=== PATIENT | female | born 1950 | race Caucasian/White ===

== ENCOUNTER → 2022-01-14 | Outpatient (CLI) | payer MEDICARE ==
[2022-01-15 07:13] LABS: CLARITY,URINE CLEAR; COLOR,URINE YELLOW
[2022-01-15 07:14] LABS: BACTERIA,URINE FEW /HPF; BILIRUBIN,URINE NEGATIVE (NEGATIVE); GLUCOSE, URINE (UA) NEGATIVE (NEGATIVE); KETONES,URINE NEGATIVE (NEGATIVE); LEUKOCYTE ESTERASE ,URINE NEGATIVE (NEGATIVE); NITRITE,URINE NEGATIVE (NEGATIVE); PROTEIN,URINE NEGATIVE (NEGATIVE); RBC,URINE 0-2 /HPF; WBC,URINE RARE /HPF
== END ==
LOC: CVS 22:00 → LABNPT 01-15 06:55
PROVIDERS: ATTEND Internal Medicine
DX: R52 Pain, unspecified (principal); R82.998 Other abnormal findings in urine; Z87.440 Personal history of urinary (tract) infections
CPT/HCPCS: 81000; 87088

== ENCOUNTER 2022-01-25 05:28 | Outpatient (CLI) | payer MEDICARE, MEDICAID ==
[~2022-01-25] VITALS: Ht 162.6 cm; Wt 76.8 kg
[2022-01-25] MEDS ORDERED: MULT-1136 PO (15:29)
[2022-01-25] MEDS ORDERED: CYAN1TAB26 PO (15:29)
[2022-01-25] MEDS ORDERED: CLIN300C3 PO (15:29)
[2022-01-25] MEDS ORDERED: ROSU5TAB13 PO (15:29)
[2022-01-25] MEDS ORDERED: ACET-2267 PO (15:29)
[2022-01-25] MEDS ORDERED: QUET100T PO (15:29)
== END 2022-01-25 15:38 ==
LOC: PREOP 05:28
PROVIDERS: ATTEND Surgery
DX: Z01.818 Encounter for other preprocedural examination (principal)

== ENCOUNTER 2022-02-01 08:59 | Day surgery (SDC) | payer MEDICARE, MEDICAID ==
[~2022-02-01] VITALS: Ht 162.6 cm; Wt 75.0 kg
[2022-02-01] VITALS (8 sets, daily range): BP systolic 120–136; BP diastolic 64–95
[~2022-02-01 08:59] MED LIST: ACET-2267 PO; CLIN300C3 PO; CYAN1TAB26 PO; MULT-1136 PO; QUET100T PO; ROSU5TAB13 PO
[2022-02-01] MEDS ORDERED: ceFAZolin INJECTION 1,000 MG ONE (09:56)
[2022-02-01] MEDS ORDERED: ceFAZolin INJECTION 1,000 MG VIAL IV ONE (10:30)
[2022-02-01] MEDS ORDERED: LACTATED RINGERS 1,000 ML IV PRN (10:30)
--- NOTE | 2022-02-01 11:11 | Progress Note-Pre Operative ---
Pre-Operative Progress Note H&P Reviewed The H&P was reviewed, patient examined and no changes noted. Date Seen by Provider: Feb 01, 2022 Time Seen by Provider: 11:10 Date H&P Reviewed: Feb 01, 2022 Time H&P Reviewed: 11:10 Pre-Operative Diagnosis: skin lesion left lower extremity LUCY RUFFIN DO Feb 01, 2022 11:11
[2022-02-01] MEDS ORDERED: LIDOCAINE/EPI 1%-1:200,000 (XYLOCAINE) 30 ML VIAL ONE (11:17)
[2022-02-01] MEDS ORDERED: PROPOFOL INJECTION 50 ML IV ONE (12:18)
--- NOTE | 2022-02-01 12:25 | Discharge Inst-Simple/Standard ---
Discharge Inst-Standard Patient Instructions/Follow Up Plan of Care/Instructions/FU: 12-14 days for suture removal Adriana Activity as Tolerated: No Discharge Diet: Regular Diet Other Inst to Patient Follow up Appt: Make appointment for 12-14 days suture removal-Adriana Instructions: No lifting greater than 10 pounds. No strenuous activity. May shower in 24 hours, no tub bath or soaking. Use incentive spirometer at home as directed. No Smoking Skin/Wound Care: Keep area clean and dry. Symptoms to Report: Appetite Changes, Extremity Discoloration, Numbness/Tingling, Swelling Increased, Bleeding Excessive, Eyesight Changes, Pain Increased, Urine Color Change, Constipation(Persistent), Fever over 101 degree F, Pain/Pressure in chest, Urinating Difficulty, Cough Up/Vomit Blood, Heart Beat Irreg/Pounding, Pain/Pressure in jaw, Vaginal Bleeding Increase, Cramps in feet or legs, Lightheadedness, Pain/Pressure in shoulder, Diarrhea(Persistent), Memory Changes Suddenly, Questions/Concerns, Weight gain consecutive days, Dizziness/Fainting, Nausea/Vomiting, Shortness of Breath, Weight gain over 2 pounds If questions or concerns contact your physician Or seek help at emergency department. LUCY RUFFIN DO Feb 01, 2022 12:25
--- NOTE | 2022-02-01 20:52 | OPERATIVE REPORT ---
DATE OF SERVICE: 02/01/2022 PREOPERATIVE DIAGNOSIS: Lesion left lower extremity. PROCEDURE: Excision of left lower extremity skin lesion, 2.8 x 6.5 cm. SURGEON: Lucy Wright DO ANESTHESIA: MAC with local. ESTIMATED BLOOD LOSS: Minimal. COMPLICATIONS: None. INDICATIONS: The patient is a 71-year-old female with a lesion on the left lower extremity that would not heal. She understands risks and benefits of procedure and wishes to proceed. Consent was signed in the chart. DESCRIPTION OF PROCEDURE: The patient was taken to the operating suite. She was prepped and draped in sterile fashion. Timeout was performed. Local anesthetic was infiltrated around the lesion. An elliptical incision measuring 2.8 x 6.5 cm was made around the lesion. Skin and subcutaneous tissue were removed with cautery. The skin was then mobilized circumferentially. The skin was then closed using 2-0 Prolene in simple running fashion. The area was washed and dried and sterile bandage was applied. The patient tolerated procedure well without any complications. She was taken to recovery room in stable condition. RECOMMENDATIONS: The patient will follow up on pathology in 12 to 14 days and to have sutures removed. Further recommendations pending pathology. Job ID: [id number] DocumentID: [id number] Dictated Date: 02/01/2022 15:53:57 Billet Bed Operator Date: 02/01/2022 20:51:54 Dictated By: LUCY WRIGHT DO
--- NOTE | 2022-02-02 08:09 | Anesthesia-General Post-Op ---
MAC Significant Intra-Op Events Notes late entry 02/01/22@1400 Patient Condition Mental Status/LOC: Same as Preop Cardiovascular: Satisfactory Nausea/Vomiting: Absent Respiratory: Satisfactory Pain: Controlled Complications: Absent Post Op Complications Complications None Follow Up Care/Instructions Patient Instructions None needed. Anesthesiology Discharge Order Discharge Order Patient is doing well, no complaints, stable vital signs, no apparent adverse anesthesia problems. No complications reported per nursing. LISSETTE CROWLEY CRNA Feb 02, 2022 08:09
== END 2022-02-01 13:30 ==
LOC: SDC 08:59
PROVIDERS: ATTEND Surgery
DX: C76.52 Malignant neoplasm of left lower limb (principal); L97.909 Non-pressure chronic ulcer of unspecified part of unspecified lower leg with unspecified severity; Z87.891 Personal history of nicotine dependence
CPT/HCPCS: 87081

== ENCOUNTER → 2022-07-14 | Outpatient (CLI) | payer MEDICARE, MEDICAID ==
[2022-07-14 19:23] LABS: BILIRUBIN,URINE NEGATIVE (NEGATIVE); CLARITY,URINE CLEAR; COLOR,URINE YELLOW; GLUCOSE, URINE (UA) NEGATIVE (NEGATIVE); KETONES,URINE TRACE (NEGATIVE); LEUKOCYTE ESTERASE ,URINE TRACE (NEGATIVE); NITRITE,URINE NEGATIVE (NEGATIVE); PROTEIN,URINE NEGATIVE (NEGATIVE)
[2022-07-14 19:33] LABS: BACTERIA,URINE LARGE /HPF; HYALINE CASTS, URINE 0-2 /LPF
== END ==
LOC: LABNPT 19:17
PROVIDERS: ATTEND Internal Medicine
DX: N30.90 Cystitis, unspecified without hematuria (principal); R41.82 Altered mental status, unspecified
CPT/HCPCS: 81000; 87088

== ENCOUNTER 2022-09-28 12:07 | Outpatient (CLI) | payer MEDICARE, MEDICAID ==
[2022-09-28 12:14] VITALS: BP 129/80
[2022-09-28] MEDS ORDERED: ONDANSETRON 4 MG/2 ML (SDV) Z0FRAN IV PRN (12:45)
[2022-09-28] MEDS ORDERED: BEBTELOVIMAB 175 MG/2 ML VIAL IV ONE (12:45)
[2022-09-28] MEDS ORDERED: diphenhydrAMINE 50 MG/ML INJ (BENADRYL) IV PRN (12:45)
[2022-09-28] MEDS ORDERED: EPINEPHrine INJECTION 1 MG/ML AMP IM PRN (12:45)
[2022-09-28] MEDS ORDERED: ACETAMINOPHEN 500 MG TAB (TYLENOL) PO PRN (12:45)
[2022-09-28 13:55] VITALS: BP 129/80
== END 2022-09-28 14:08 | disposition home or self-care (01) ==
LOC: INFUSION 12:07
PROVIDERS: ATTEND Physician Assistant
DX: U07.1 COVID-19 (principal)

== ENCOUNTER 2022-10-25 13:40 | Emergency (ER) | payer MEDICARE, MEDICAID ==
--- NOTE | 2022-10-25 14:01 | ED GU-Female ---
General Chief Complaint: - Reproductive Stated Complaint: PROLAPSED UTERUS Nursing Triage Note: PT ARRIVES TO ER VIA EMS FROM [facility]IA [facility]. ACCORDING TO EMS, STAFF WENT TO CLEAN PT AFTER A BOWEL MOVEMENT AND NOTED A 'MASS COMING OUT OF HER VAGINA', REPORTS WAS NOT THERE YESTERDAY. PT ALERT, HX OF DEMENTIA, CURRENTLY AT HER BASELINE, AMBULATORY FOR EMS. DENIES ANY COMPLAINTS. Source: EMS Exam Limitations: clinical condition (JUSTIN DAMIAN APRN) History of Present Illness Date Seen by Provider: Oct 25, 2022 Time Seen by Provider: 13:48 Initial Comments This is a 72-year-old female with a history of dementia who presented to the ER via [facility] for concerns of uterine prolapse. Staff states that after she had a bowel movement they were cleaning her up and noted a "mass coming out of her vagina". States that when she was bed yesterday they did not appreciate this mass. At this time she is awake and alert, does have a history of dementia but able to answer simple questions. She denies any pain, pressure, discomfort at all. No other concerns voiced from patient or nursing facility. No fever, chills, cough, shortness of breath, nausea, vomiting, abdominal pain. (JUSTIN DAMIAN APRN) Allergies and Home Medications Allergies Coded Allergies: No Known Drug Allergies (Unverified , 01/25/22) Patient Home Medication List Home Medication List Reviewed: Yes (JUSTIN DAMIAN APRN) Acetaminophen (Tylenol Extra Strength) 500 Mg Tablet, 500 MG PO Q6H, (Reported) Entered as Reported by: SHAD KUMAR on 01/25/221528 Clindamycin HCl (Cleocin HCl) 300 Mg Capsule, 300 MG PO TID, (Reported) Entered as Reported by: SHAD KUMAR on 01/25/221528 Cyanocobalamin/Folic Acid (Vitamin P87-Izxmw Acid Tablet) 1 Each Tablet, 1 EACH PO DAILY, (Reported) Entered as Reported by: SHAD KUMAR on 01/25/221528 Multivitamin (Multivitamin) 1 Each Tablet, 1 EACH PO DAILY, (Reported) Entered as Reported by: SHAD KUMAR on 01/25/221528 Quetiapine Fumarate (Seroquel) 100 Mg Tablet, 100 MG PO BID, (Reported) Entered as Reported by: SHAD KUMAR on 01/25/221528 Rosuvastatin Calcium (Rosuvastatin Calcium) 5 Mg Tablet, 5 MG PO DAILY, (R eported) Entered as Reported by: SHAD Medina STACY on 01/25/221528 Review of Systems Review of Systems Constitutional: see HPI (JUSTIN DAMIAN APRN) Past Vdrfkph-Arskkz-Gozzlt Hx Patient Social History Tobacco Use?: No Use of E-Cig and/or Vaping dev: No Substance use?: No Alcohol Use?: No Pt feels they are or have been: No (JUSTIN DAMIAN APRN) Immunizations Up To Date First/Initial COVID19 Vaccinat: UNK Second COVID19 Vaccination Artemio: 03/02/21 (JUSTIN DAMIAN APRN) Seasonal Allergies Seasonal Allergies: No (JUSTIN DAMIAN APRN) Past Medical History Respiratory: Yes Currently Using CPAP: No Currently Using BIPAP: No Cardiac: Yes High Cholesterol Neurological: Yes (DEMENTIA W/O DISTURBANCE) Genitourinary: Yes UTI-Chronic Gastrointestinal: No Musculoskeletal: Yes (WEAKNESS) Endocrine: No HEENT: No Cancer: No Psychosocial: Yes Depression Integumentary: Yes (SKIN LESION/ULCERS) (JUSTIN DAMIAN APRN) Physical Exam Vital Signs Vital Signs - First Documented 10/25/22 13:44 Temp 36.1 Pulse 20 Resp 18 B/P (MAP) 140/88 (105) Pulse Ox 96 O2 Delivery Room Air (AILIN TREVIZO MD) Vital Signs Capillary Refill : (JUSTIN DAMIAN APRN) Height, Weight, BMI Height: '" Weight: lbs. oz. kg; 28.36 BMI Method: General Appearance: WD/WN, no apparent distress HEENT: PERRL/EOMI, normal ENT inspection Neck: full range of motion, normal inspection Cardiovascular: regular rate, rhythm, no murmur Respiratory: lungs clear, normal breath sounds, no respiratory distress, no accessory muscle use Gastrointestinal: normal bowel sounds, non tender, soft Pelvic: normal external exam, no masses; No lesions, No mass Back: normal inspection, no vertebral tenderness Extremities: normal range of motion, normal inspection, normal capillary refill, slow capillary refill Neurologic/Psychiatric: no motor/sensory deficits, alert, normal mood/affect, oriented x 3 Skin: normal color, warm/dry (JUSTIN DAMIAN APRN) Progress/Results/Core Measures Suspected Sepsis SIRS Temperature: Pulse: 20 Respiratory Rate: 18 Blood Pressure 140 /88 Mean: 105 (JUSTIN DAMIAN APRN) Results/Orders Vital Signs/I&O Capillary Refill : (JUSTIN DAMIAN APRN) Blood Pressure Mean: 105 Progress Note : Progress Note Patient examined and no prolapse appreciated on exam. Called nursing facility, no other medical concerns. Will discharge back to nursing facility. (JUSTIN DAMIAN APRN) Departure Impression Primary Impression: History of uterine prolapse Disposition: SNF Condition: Stable Departure-Patient Inst. Decision time for Depature: 14:00 (JUSTIN DAMIAN APRN) Referrals: UNIQUE GONZALEZ MD (PCP/Family) Primary Care Physician Patient Instructions: Vaginal Prolapse Add. Discharge Instructions: Plan: 1. Try to have patient avoid straining is much as possible, straining can increase risk of recurrence of prolapse. 2. You can attempt to apply regular granulated table sugar if she has vaginal prolapse again and it does not self reduce. If you apply sugar and this does not reduce prolapse you can return to the emergency department for further evaluation. 3. Return for any new, concerning, worsening symptoms. All discharge instructions reviewed with patient and/or family. Voiced understanding. ATTENDING PHYSICIAN NOTE: I was physically present as attending physician in the emergency department during the care of this patient, but I was not directly involved in the decision making or delivery of care for this patient. (AILIN TREVIZO MD) JUSTIN DAMIAN APRN Oct 25, 2022 14:01 AILIN TREVIZO MD Oct 26, 2022 06:21
[2022-10-25 14:06] VITALS: BP 128/71
== END 2022-10-25 14:52 ==
LOC: EDUNIT# 13:40 → ER 13:44
DX: Z09 Encounter for follow-up examination after completed treatment for conditions other than malignant neoplasm (principal); Z87.42 Personal history of other diseases of the female genital tract
CPT/HCPCS: 99283

== ENCOUNTER → 2022-11-25 | Outpatient (CLI) | payer MEDICARE, MEDICAID ==
[2022-11-25 15:31] LABS: BILIRUBIN,URINE NEGATIVE (NEGATIVE); CLARITY,URINE SL CLOUDY; COLOR,URINE YELLOW; GLUCOSE, URINE (UA) NEGATIVE (NEGATIVE); KETONES,URINE NEGATIVE (NEGATIVE); LEUKOCYTE ESTERASE ,URINE NEGATIVE (NEGATIVE); NITRITE,URINE NEGATIVE (NEGATIVE); PROTEIN,URINE NEGATIVE (NEGATIVE)
[2022-11-25 15:43] LABS: BACTERIA,URINE FEW /HPF; RBC,URINE RARE /HPF
== END ==
LOC: LABNPT 15:25
PROVIDERS: ATTEND Internal Medicine
DX: N39.0 Urinary tract infection, site not specified (principal)
CPT/HCPCS: 81000